=== PATIENT | female | born 1980 | race Caucasian/White ===

== ENCOUNTER 2018-12-12 08:27 | Observation (INO) ==
--- NOTE | 2018-11-21 16:04 | PAT Medication Instructions ---
Medication Instructions Date of Service November 21, 2018 Home Medications multivitamin 1 tab PO DAILY ranitidine HCl [Zantac] 150 mg PO DAILY PRN DO NOT take the morning of surgery multivitamin 1 tab PO DAILY ranitidine HCl [Zantac] 150 mg PO DAILY PRN Other Notes If you have any questions please call us at [phone] or [phone] or [phone] or [phone]
--- NOTE | 2018-11-22 12:59 | Anesthesiology Consultation ---
Date of Service November 22, 2018 Assessment & Plan (1) Encounter for pre-operative examination: - Check test AM DOS Chart Review Chart Review: Acceptable Risk for Surgery and Patient seen in Pre Admission Te sting Teaching & Discussion Pre-Anesthesia Teaching/Discussion Notes: Instructed NPO after midnight before surgery,except medications with 15 cc of water. Medication instructions provided according to the PAT guidelines. History Surgery Operation Date: 12/12/18 09:50 Proposed Procedures p Robotic Total Laparoscopic Hysterectomy - Elvia Lopez DO Height/Weight Height: 5 ft 5 in Weight: 65.1 kg Allergies Allergy/AdvReac Type Severity Reaction Status Date / Time nickel Allergy Intermediate Rash Verified 11/21/18 07:19 No Known Drug Allergies Allergy Verified 11/21/18 07:20 Medications Home Medications Medication Instructions Recorded Confirmed Last Taken multivitamin 1 tab PO DAILY 11/21/18 11/21/18 Unknown ranitidine HCl [Zantac] 150 mg PO DAILY PRN 11/21/18 11/21/18 Unknown Past Medical History Medical History Anemia IRON INFUSIONS PRN (MOST RECENT 09/2018) Anxiety Depression GERD (gastroesophageal reflux disease) OCCASIONAL Menorrhagia Exercise / Class Metabolic Activity II 4-5 Yardwork/Stairs/Walk up hill Past Family History Family History Grandmother Family hx of colon cancer Past Surgical History Surgical History History of colonoscopy History of dilatation and curettage S/P ACL surgery LEFT Past Anesthesia History No Hx of Anesthesia Complications and No Family Hx of Anesthesia Complications History of PONV No Hx of PONV, No Family Hx of PONV and No Hx of Motion Sickness Social History Smoking Status: Current every day smoker tobacco type: cigarettes Smoking cigarettes per day: <1 PPD CIGARETTES DAILY X 24 YEARS Do You Dip or Chew Tobacco: No Hx Alcohol Use: Yes alcohol intake frequency: holidays/special occasions only Hx Substance Use: No substance use type: does not use Review of Systems Occasional reflux improved with zantac prn. Patient denies chest pain, shortness of breath, dyspnea on exertion, cough, wheezing, palpitations. Physical Exam Vital Signs VITALS BP 100/69 (baseline low-normal bp's per patient) P 58 TEMP 98.6 SP02 97%RA RESP 14 PHYSICAL Full neck and c-spine range of motion. Full TMJ range of motion. TMD 4 finger breaths Mallampati Score 1 Dentition: intact Lungs: clear throughout to auscultation Cardiac: regular rate and rhythm, no murmurs noted Spine: normal Carotid arteries: negative bruit Extremities: no edema Testing Laboratory Results 11/22/18 13:24 11/22/18 13:24 Blood Type O Positive 11/22/18 13:24 Antibody Screen NEGATIVE 11/22/18 13:24 Urine Color Yellow 11/22/18 Unknown Urine Appearance Clear (Clear) 11/22/18 Unknown Urine pH 5.0 (4.5-7.5) 11/22/18 Unknown Ur Specific [place] 1.018 (1.000-1.030) 11/22/18 Unknown Urine Protein Negative (Negative) 11/22/18 Unknown Urine Glucose (UA) Negative (Negative) 11/22/18 Unknown Urine Ketones 1+ (Negative) H 11/22/18 Unknown Urine Nitrite Negative (Negative) 11/22/18 Unknown Ur Leukocyte Esterase Negative (Negative) 11/22/18 Unknown Urine WBC (Auto) 0 /hpf (0-5) 11/22/18 Unknown Urine RBC (Auto) 0-4 /hpf (0-4) 11/22/18 Unknown U Hyaline Cast (Auto) 0 /lpf (0-5) 11/22/18 Unknown U Epithel Cells (Auto) 0-5 /lpf (0-5) 11/22/18 Unknown Urine Bacteria (Auto) Negative (Negative) 11/22/18 Unknown
[2018-11-22 14:17] LABS: Mean Corpuscular Hgb Conc 32.9 g/dL (32-36)
[2018-11-22 14:23] LABS: Appearance Urine Clear (Clear); Bacteria Urine Automated Negative (Negative); Bilirubin Urine Negative (Negative); Blood Urine 2+ (Negative); Cast Urine Automated 0 /lpf (0-5); Color Urine Yellow; Epithelial Cell Urine Auto 0-5 /lpf (0-5); Glucose Urine UA Negative (Negative); Ketones Urine 1+ (Negative); Leukocyte Esterase Urine Negative (Negative); Nitrite Urine Negative (Negative); Protein Urine Negative (Negative); RBC Urine Automated 0-4 /hpf (0-4); Specific Gravity Urine 1.018 (1.000-1.030); Urobilinogen Urine Negative (Negative); WBC Urine Automated 0 /hpf (0-5)
[2018-11-22 14:24] LABS: Hematocrit (blood only) 41.3 % (37-47); Hemoglobin 13.6 g/dL (12.0-16.0); Mean Corpuscular Volume 83.3 fL (80-100); RDW Coefficient of Variation 20.4 % (11.5-14.5); RDW Standard Deviation 62.9 fL (36.4-46.3); Red Blood Count 4.96 M/uL (4.2-5.4); White Blood Count 5.73 K/uL (4.8-10.8)
[2018-11-22 14:45] LABS: Anisocytosis Present; Basophils # (auto) 0.01 K/uL (0-0.2); Basophils % (auto) 0.2 %; Eosinophils # (auto) 0.13 K/uL (0-0.5); Eosinophils % (auto) 2.3 %; Giant Platelets 1+; Immature Granulocytes # (auto) 0.01 K/uL (0.00-0.02); Immature Granulocytes % (auto) 0.2 %; Lymphocytes # (auto) 1.54 K/uL (1.2-3.4); Lymphocytes % (auto) 26.9 %; Monocytes # (auto) 0.44 K/uL (0.11-0.59); Monocytes % (auto) 7.7 %; Neutrophils % (auto) 62.7 %; Platelet Count 124 K/uL (130-400); Platelet Estimate Decreased (Normal)
[2018-11-22 14:56] LABS: BUN Creatinine Ratio 18.7 (10-20); Calcium 9.1 mg/dl (8.5-10.1); Est GFR (African American) 129.2; Est GFR (Non-African American) 111.5
[~2018-12-12 08:27] MED LIST: CEFAZOLIN 2000MG 2,000 MG/15 ML SYR IV SCH; LACTATED RINGER'S 1,000 ML IV SCH; LR 15ML/HR IV SCH
[2018-12-12] MEDS ORDERED: MIDAZOLAM HCL 1 MG/ML 2ML VIAL ONE (08:38)
[2018-12-12] MEDS ORDERED: fentaNYL citrate 100 MCG/2 ML VIAL ONE ×2 (08:39→11:28)
[2018-12-12 09:00] LABS: Basophils # (auto) 0.01 K/uL (0-0.2); Basophils % (auto) 0.3 %; Eosinophils # (auto) 0.19 K/uL (0-0.5); Eosinophils % (auto) 5.4 %; Hematocrit (blood only) 32.9 % (37-47); Hemoglobin 10.7 g/dL (12.0-16.0); Lymphocytes % (auto) 45.6 %; Mean Corpuscular Volume 82.3 fL (80-100); Mean Platelet Volume 10.6 fL (7.4-10.4); Monocytes # (auto) 0.38 K/uL (0.11-0.59); Monocytes % (auto) 10.8 %; Neutrophils # (auto) 1.33 K/uL (1.4-6.5); Neutrophils % (auto) 37.9 %; Platelet Count 150 K/uL (130-400); RDW Coefficient of Variation 18.9 % (11.5-14.5); RDW Standard Deviation 57.1 fL (36.4-46.3); White Blood Count 3.51 K/uL (4.8-10.8)
[2018-12-12 09:01] LABS: Mean Corpuscular Hgb Conc 32.5 g/dL (32-36)
[2018-12-12 09:10] LABS: Partial Thromboplastin Ratio 1.1; Partial Thromboplastin Time 29.6 Seconds (21.0-31.0); Prothrombin Time 10.3 Seconds (9.0-12.0)
[2018-12-12] MEDS ORDERED: ACETAMINOPHEN 1000 MG/100 ML IV IV ONE (09:41)
[2018-12-12] MEDS ORDERED: LIDOCAINE HCL 2% 2 ML VIAL/AMP(20MG/ML) INFIL ONE (09:51)
[2018-12-12] MEDS ORDERED: DEXAMETHASONE SOD INJ 4 MG/ML VIAL ONE (09:51)
[2018-12-12] MEDS ORDERED: PROPOFOL IV EMULSION 10 MG/ML 20 ML VIAL IV ONE (09:51)
[2018-12-12] MEDS ORDERED: ROCURONIUM BROMIDE 10 MG/ML 5 ML VIAL ONE ×2 (09:51→11:36)
[2018-12-12] MEDS ORDERED: ONDANSETRON INJ 2 MG/ML 2 ML VIAL ONE (09:51)
[2018-12-12] MEDS ORDERED: KETOROLAC 30 MG/ML VIAL IV PRN ×2 (09:55→13:28)
[2018-12-12] MEDS ORDERED: ATROPINE SULFATE 0.1 MG/ML 10ML SYR IV PRN (09:55)
[2018-12-12] MEDS ORDERED: ONDANSETRON INJ 2 MG/ML 2 ML VIAL IV PRN ×2 (09:55→13:28)
[2018-12-12] MEDS ORDERED: BUPIVACAINE 0.5 % 5 MG/1 ML MPF 30ML VIAL ONE (10:06)
[2018-12-12] MEDS ORDERED: METHYLENE BLUE 0.5% 10 ML VIAL ONE (10:06)
--- NOTE | 2018-12-12 10:10 | History & Physical Bridge Note ---
Date of Service December 12, 2018 History & Physical Bridge Note I have examined the patient, reviewed the History & Physical and in the interval since the performance of the History & Physical I have noted the following changes of clinical significance: no changes noted
[2018-12-12] MEDS ORDERED: GLYCOPYRROLATE 0.2 MG/ML VIAL ONE (10:55)
[2018-12-12] MEDS ORDERED: NEOSTIGMINE METHYLSULFATE 5 MG/5 ML SYR ONE (10:55)
[2018-12-12] MEDS ORDERED: TISSEEL FIBRIN SEALANT 10ML TOP ONE (12:41)
--- NOTE | 2018-12-12 13:05 | Post Operative Brief Note ---
Immediate Post Op Note v1 Date of Surgery December 12, 2018 Pre & Post Diagnosis Operation Date: 12/12/18 09:30 Pre-Op Diagnosis: Menorrhagia Post-Op Diagnosis: Menorrhagia Procedure Operation Date: 12/12/18 09:30 Actual Procedures p Robotic assisted Total Laparoscopic Hysterectomy and salpingectomy, cystoscopy(Not Applicable) - Elvia Lopez DO Surgeon Elvia Lopez DO Manager Business Operations Alyssa Conway MD Estimated Blood Loss 100 Findings Consistent with Post-Op Diagnosis Enlarged bulky uterus, normal appearing tubes/ovaries. Specimens Uterus, bilateral tubes Drains Bright Catheter Anesthesia Type General Complications none Disposition Accompanied Patient To Recovery: No Disposition: Recovery Room
[2018-12-12] MEDS ORDERED: OXYCODONE/ACETAMINOPHEN 5mg/325mg TAB PO PRN ×2 (13:28)
[2018-12-12] MEDS ORDERED: IBUPROFEN 600 MG TAB PO PRN (13:28)
--- NOTE | 2018-12-12 13:41 | Operative Report ---
Post Operative Report Pre & Post Diagnosis Operation Date: 12/12/18 09:30 Pre-Op Diagnosis: Menorrhagia Post-Op Diagnosis: Menorrhagia Procedure Operation Date: 12/12/18 09:30 Actual Procedures p Robotic assisted Total Laparoscopic Hysterectomy and salpingectomy, cystoscopy(Not Applicable) - Elvia Lopez DO Surgeon Elvia Lopez DO It Applications Manager Alyssa Conway MD Estimated Blood Loss 100 Findings Consistent with Post-Op Diagnosis Bulky enlarged uterus. Normal appearing tubes/ovaries. Specimens uterus/cervix, bilateral fallopian tubes Drains prabhakar clear yellow Anesthesia Type General Complications none Disposition Accompanied Patient To Recovery: No Disposition: Recovery Room Indications Patient is a 38-year-old -0-1-2 who has long-standing heavy menses and anemia. She also has idiopathic thrombocytopenic purpura, further, getting issue. She has completed childbearing and seeks a permanent surgical treatment for the heavy menses. Description of Procedure Patient was seen in the preoperative holding area, where risks benefits and alternatives to surgery reviewed. She elected to proceed with the case. She previously signed informed consent under no duress in the office. All questions were answered. She was taken to the operating room, where she was prepared and draped in the usual sterile fashion with feet in yellowfin stirrups in the dorsal lithotomy position. 2 g of Ancef was infused preoperatively, timeout was confirmed. Next, a Prabhakar catheter was placed in the bladder. A weighted speculum placed in the vagina, the cervix is visualized, its anterior lip was grasped with single- tooth tenaculum. Bilateral stay sutures were placed at 3 and 9:00 on the cervix. The uterine manipulator was then placed and suture-tied in place. Gloves were changed and the attention was then turned to the abdomen. A supraumbilical incision was made and carried through to the abdominal cavity using the open Nash technique. Sutures were placed on the bilateral fascial edges, and the Nash trocar was inserted. The camera was inserted, intracavitary placement was confirmed. The abdomen was then insufflated with CO2 gas on high flow. Patient was placed in steep Trendelenburg position. Next, trocar sites were placed bilaterally. To the patient's right, 2 robotic trochars were placed under direct visualization. On the patient's left, one robotic trocar and one podiatry assistant port were placed. Bowel was swept out of the way, the robot was docked. First, the left salpingectomy was performed. The fallopian tube was from its mesosalpinx with cautery. This was then removed from the abdomen through the podiatry assistant port. In a similar fashion, the right salpingectomy was performed. The left utero-ovarian ligament was coagulated and transected. In a similar fashion the right utero-ovarian ligament was also coagulated and transected. Next, the left round ligament was transected and the anterior leaf the broad ligament was dissected away from the anterior aspect of the uterus. In a similar fashion, the right round ligament was transected and the bladder flap was created. The bladder was pushed down over the palpable uterine manipulator. The uterine vessels were skeletonized on bilateral sides. The right uterine vessels were coagulated. Next, the left uterine vessels were coagulated and transected. Attention was then turned back to the right uterine vessels, these were also transected. Next, the uterus was amputated from the vaginal cuff and a circumferential incision using monopolar scissors. The uterus was then delivered through the vagina. Bipolar cautery was used to obtain excellent hemostasis. The vaginal cuff was reapproximated using V lock suture. Excellent hemostasis was observed. Prabhakar catheter was removed. Cystoscopy was performed with the aid of methylene blue. Bilateral urine jets were seen exiting through bilateral ureters. The bladder appeared intact and without damage. The cystoscope was withdrawn, a new Prabhakar catheter was placed. Tisseel coagulant was used along the vaginal cuff and raw edges. A 0 pressure test was performed, excellent hemostasis was observed. The robot was undocked, the supraumbilical incision was reapproximated at the fascia using 0 Vicryl. All incisions were reapproximated using 4-0 Vicryl in subcuticular stitches. Dermabond glue was applied. Local anesthetic was used at the incision sites. All sponge, instrument, needle counts were correct x2 at the conclusion of the case. The patient tolerated the procedure well will be taken to the recovery room in stable and good condition. I attest to the content of the Intraoperative Record and any orders documented therein. Any exceptions are noted below.
[2018-12-12] MEDS: HYDROmorphone INJ 1 MG/ML SYRINGE IV PRN ×2 (13:47→13:53)
[2018-12-12] MEDS ORDERED: LACTATED RINGER'S 1,000 ML IV SCH (14:15)
--- NOTE | 2018-12-12 14:41 | Anesthesiology Progress Note ---
Date of Service December 12, 2018 Anesthesia Post Procedure Vital Signs Vital Signs: Temp Pulse Resp BP Pulse Ox 12/12/18 14:05 36.6 C 63 20 113/80 100 12/12/18 13:55 52 L 12 113/71 100 12/12/18 13:45 54 L 22 109/71 100 12/12/18 13:35 49 L 18 106/67 100 12/12/18 13:25 50 L 20 110/67 100 12/12/18 13:15 60 16 101/63 100 12/12/18 13:05 59 L 16 102/61 100 12/12/18 12:59 36.3 C L 62 14 100/58 L 100 12/12/18 08:48 36.8 C 67 16 111/72 100 Pain Intensity Anterior Abdomen: Pain Intensity: 2 Transfer of Care Handoff Completed per policy Notes Mental Status: alert / awake / arousable Patient Amnestic to Procedure: Yes Nausea / Vomiting: adequately controlled Pain: adequately controlled Airway Patency, RR, SpO2: stable & adequate BP & HR: stable & adequate Hydration State: stable & adequate Anesthetic Complications: no major complications apparent
[2018-12-12] MEDS: SIMETHICONE 80 MG CHEW PO PRN ×2 (15:35→18:15)
--- NOTE | 2018-12-12 18:20 | Obstetrical Progress Note ---
Date of Service December 12, 2018 Subjective Patient feeling well. Pain controlled. Tolerating PO. Bright just removed. Will begin to ambulate and urinate on her own, and then is ok for discharge as long as she meets parameters for DC. She is AAOx3, NAD. Abdomen soft, NTTP. Incisions clean/dry/intact. No vaginal bleeding. EPCs in place. Reviewed DC instructions, she would like to go home this evening. Results & Data Vital Signs (Past 12 Hours) Vital Signs Temp Pulse Pulse Resp BP Pulse Ox 12/12/18 16:30 97.7 F 70 17 92/57 L 96 12/12/18 15:30 97.9 F 66 18 109/68 98 12/12/18 15:00 97.7 F 57 L 18 113/72 99 12/12/18 14:30 97.5 F L 66 16 115/75 98 12/12/18 14:05 97.9 F 63 20 113/80 100 12/12/18 13:55 52 L 12 113/71 100 12/12/18 13:45 54 L 22 109/71 100 12/12/18 13:35 49 L 18 106/67 100 12/12/18 13:25 50 L 20 110/67 100 12/12/18 13:15 60 16 101/63 100 12/12/18 13:05 59 L 16 102/61 100 12/12/18 12:59 97.3 F L 62 14 100/58 L 100 12/12/18 08:48 98.2 F 67 16 111/72 100
[2018-12-12] MEDS ORDERED: DOCUSATE SODIUM 100 MG CAP PO SCH (21:00)
--- NOTE | 2018-12-13 08:15 | Discharge Summary ---
Date of Service December 13, 2018 Discharge Data Procedures Performed Operation Date: 12/12/18 09:30 Actual Procedures p Robotic assisted Total Laparoscopic Hysterectomy and salpingectomy, (Not Applicable) - Elvia Lopez DO s Cystoscopy(Not Applicable) - Elvia Lopez DO Hospital Course (1) Menorrhagia: Robotic-assisted total laparoscopic hysterectomy, bilateral salpingectomy, cystoscopy performed. Observed after surgery, then discharged home in stable and good condition. Followup in office 2w and 6w. Discharge instructions reviewed.
== END 2018-12-12 20:00 | disposition home or self-care (01) ==
LOC: 4N 08:27 → ASU 08:27